=== PATIENT | female | born 1965 | race Caucasian/White ===

== ENCOUNTER 2017-08-25 14:02 | Emergency (ER) | payer MEDICAID ==
--- NOTE | 2017-08-25 14:35 | Emergency Department Record ---
History of Present Illness - General Chief Complaint: Cough Stated Complaint: COUGH, FEVER Time Seen by Provider: 08/25/17 14:18 Source: Patient Mode of Arrival: Ambulatory Limitations: No limitations - History of Present Illness Initial Comments: The patient is here due to a 2-3 day hx of cough, congestion, sputum production and a low grade fever with COTTO. She did take some Motrin prior to presenting here and now denies any COTTO, SOB, JOSE MANUEL, or CP. The patient did not have a flu shot this year. MD Complaint: Cough, Fever, Nasal congestion Onset/Timin -: Days(s) - Related Data Previous Rx's Medication Instructions Recorded Azithromycin [Zithromax] 250 mg PO ASDIR #6 tab 08/25/17 Oseltamivir Phosphate [Tamiflu] 75 mg PO BID #10 capsule 08/25/17 Allergies Allergy/AdvReac Type Severity Reaction Status Date / Time No Known Drug Allergies Allergy Verified 08/25/17 14:13 Travel Screening - Travel/Exposure Within Last 30 Days Have you traveled within the last 30 days?: No - Travel/Exposure Within Last Year Have you traveled outside the [place] in the last year?: No - Additonal Travel Details Have you been exposed to anyone with a communicable illness?: No - Travel Symptoms Symptom Screening: None Review of Systems Constitutional: Reports: Chills, Fever, Malaise Eyes: Denies: Eye discharge ENT: Reports: Congestion Respiratory: Reports: Cough. Denies: Dyspnea Past Medical History - SOCIAL HISTORY Smoking Status: Current every day smoker Alcohol Use: None Drug Use: None - RESPIRATORY Hx Respiratory Disorders: Yes Hx Asthma: Yes - CARDIOVASCULAR Hx Cardio Disorders: No - NEURO Hx Neuro Disorders: No - GI Hx GI Disorders: No - Hx Genitourinary Disorders: No - ENDOCRINE Hx Endocrine Disorders: No - MUSCULOSKELETAL Hx Musculoskeletal Disorders: No - PSYCH Hx Psych Problems: No - HEMATOLOGY/ONCOLOGY Hx Hematology/Oncology Disorders: No Family Medical History Any Significant Family History?: Yes Family Hx Comment (NOT TO BE USED IN PLACE OF ITEMS BELOW): COTTO-Mother Hx Anxiety: Children Hx Cancer: Father Hx Diabetes: Mother Hx Heart Disease: Mother Hx HTN: Mother Physical Exam - General General Appearance: Alert, Oriented x3, Cooperative, No acute distress - Head Head exam: Atraumatic, Normocephalic, Normal inspection - Eye Eye exam: Normal appearance, PERRL - ENT ENT exam: Normal exam, Mucous membranes moist, Normal external ear exam, Normal orophraynx, TM's normal bilaterally Throat exam: Normal inspection. negative: Tonsillar erythema, Tonsillar exudate - Neck Neck exam: Normal inspection, Full ROM. negative: Tenderness - Respiratory Respiratory exam: Normal lung sounds bilaterally. negative: Respiratory distress - Cardiovascular Cardiovascular Exam: Regular rate, Normal rhythm, Normal heart sounds - GI/Abdominal GI/Abdominal exam: Soft, Normal bowel sounds. negative: Tenderness - Extremities Extremities exam: Normal inspection, Full ROM, Normal capillary refill. negative: Tenderness Course Vital Signs 08/25/17 14:14 Temperature 98.3 F Pulse Rate 83 Respiratory 20 Rate Blood Pressure 114/79 Pulse Ox 96 - Reevaluation(s) Reevaluation #1: I did explain to the patient that it appears her CXR is normal. We will treat for Influenza and will have her take an Abx if not better in 3 days. 08/25/17 15:05 Medical Decision Making - Data Complexity MDM Data: X-Ray Ordered and/or Reviewed - Radiology Data Radiology results: Report reviewed (CXR: Neg) Disposition Disposition: Discharge Clinical Impression: URI, acute Disposition: Home, Self-Care Condition: (2) Stable Instructions: Cold Symptoms (ED) Additional Instructions: Please continue the Tylenol or Motrin for fever and body aches. Please take the Tamiflu as directed and also take the Zpak if not better in 3 days. Return to the ER for any worsening symptoms. Prescriptions: Azithromycin [Zithromax] 250 mg PO ASDIR #6 tab Oseltamivir Phosphate [Tamiflu] 75 mg PO BID #10 capsule Forms: Patient Portal Access Time of Disposition: 15:07 Quality - Quality Measures Quality Measures: N/A - Blood Pressure Screening View Details: Yes Does Patient Have Any of the Following: No Blood Pressure Classification: Normal BP Reading Systolic Measurement: 114 Diastolic Measurement: 79 Screening for High Blood Pressure: < Normal BP, F/U Not Required > [G8783]
--- NOTE | 2017-08-26 10:34 | RADIOLOGY REPORT ---
EXAM: CHEST, TWO VIEWS HISTORY: CONGESTION, COUGH AND FEVER FOR THREE DAYS. TECHNIQUE: Upright PA and lateral views of the chest were obtained. Comparison: Two view chest radiographic examination dated 10/15/14. FINDINGS: The heart is not enlarged and the pulmonary vasculature is nondilated. The lungs are mildly hyperinflated. On the lateral view there is suggestion of linear scarring at the anterior mid lung level, stable. The lungs and pleural spaces are otherwise clear. There are mild degenerative changes scattered throughout the visualized spine. IMPRESSION: 1. NO RADIOGRAPHIC EVIDENCE OF ACUTE CARDIOPULMONARY DISEASE. PREVIOUSLY DEMONSTRATED LEFT LOWER LOBE INFILTRATE HAS CLEARED. 2. HYPERINFLATION OF THE LUNGS CONSISTENT WITH COPD. JOB NUMBER: [id number] [facility]
== END 2017-08-25 15:14 | disposition home or self-care (01) ==
LOC: ER 14:02
DX: J06.9 Acute upper respiratory infection, unspecified (principal); R05 Cough
CPT/HCPCS: 71046; 99283